=== PATIENT | female | born 1990 | race African-American/Black ===

== ENCOUNTER 2016-10-10 11:16 | Emergency (ER) | payer OTHER ==
[~2016-10-10] VITALS: Ht 154.9 cm; Wt 78.0 kg
[2016-10-10 11:17] VITALS: BP 118/75; PULSE 97; RESP 16; TEMP 98.1; O2SAT 99
[2016-10-10] MEDS ORDERED: ACETAMINOPHEN 325 MG TAB PO ONE (11:30)
[2016-10-10] MEDS ORDERED: ONDANSETRON ODT 4 MG TAB PO ONE (11:30)
--- NOTE | 2016-10-10 11:31 | PD ---
HPI Chief Complaint: Related Problem Time Seen by Provider: 11:25 Travel History International Travel<30 days: No Contact w/Intl Traveler<30days: No Traveled to known affect area: No History of Present Illness HPI This patient was examined in the presence of a female nurse. 26-year-old female presents for evaluation of abdominal pain. Symptoms started 3 days ago. She describes it as an aching sensation in the left lower portion of her abdomen which is constant. She does endorse being , last menstrual period was August 30. She went to the health department and had a positive test. She does endorse a slight headache as well as nausea, one episode of vomiting yesterday. She denies any vaginal bleeding or discharge , dysuria, flank pain, fevers or chills. She has not yet seen an DROP COUNT ASSOCIATE. No other complaints. PFSH Past Medical History ?: LMP: 08/30/16 Social History Alcohol Use: No Tobacco Use: No Allergies-Medications (Allergen,Severity, Reaction): Coded Allergies: No Known Allergies (Unverified , 10/10/16) Reported Meds & Prescriptions Reported Meds & Active Scripts Active Plus Iron 29-1 mg ( Vit-Iron Carbonyl) 1 Tab Tab 1 Tab PO DAILY Macrobid (Nitrofurantoin Monoh/Nitrofur Macro) 100 Mg Cap 100 Mg PO BID 7 Days Review of Systems Except as stated in HPI: all other systems reviewed are Neg Physical Exam Narrative GENERAL: Well-developed well-nourished female in no acute distress SKIN: Warm and dry. HEAD: Atraumatic. Normocephalic. EYES: Pupils equal and round. No scleral icterus. No injection or drainage. ENT: No nasal bleeding or discharge. Mucous membranes pink and moist. NECK: Trachea midline. No JVD. CARDIOVASCULAR: Regular rate and rhythm. No murmur appreciated. RESPIRATORY: No accessory muscle use. Clear to auscultation. Breath sounds equal bilaterally. GASTROINTESTINAL: Abdomen soft, mild suprapubic/left lower quadrant tenderness without guarding. Pelvic examination performed in the presence of a female nurse: There is some yellow discharge noted in the vaginal canal. There is no cervical motion tenderness, no adnexal tenderness. MUSCULOSKELETAL: No obvious deformities. NEUROLOGICAL: Awake and alert. No obvious cranial nerve deficits. Motor grossly within normal limits. Normal speech. Data Data Last Documented VS Vital Signs Date Time Temp Pulse Resp B/P Pulse Ox O2 Delivery O2 Flow Rate FiO2 10/10/16 11:25 14 10/10/16 11:17 98.1 97 118/75 99 Orders Beta Hcg (Quant/Titer) (10/10/16 11:27) Gc And Chlamydia Pcr (10/10/16 11:27) Us Pelvis (Ques Pr/Ect)W Trans (10/10/16 ) Wet Prep Profile (10/10/16 11:27) Urinalysis - C+S If Indicated (10/10/16 11:27) Ed Urine Pregnancytest Poc (10/10/16 11:27) Ondansetron Odt (Zofran Odt) (10/10/16 11:30) Acetaminophen (Tylenol) (10/10/16 11:30) Urine Culture (10/10/16 11:40) Azithromycin Powd Pack (Zithromax Powd P (10/10/16 12:45) Ceftriaxone Inj (Rocephin Inj) (10/10/16 12:45) Lidocaine 1% Inj (50 Ml) (Xylocaine 1% I (10/10/16 12:45) Metronidazole (Flagyl) (10/10/16 12:45) Labs Laboratory Tests Test 10/10/16 10/10/16 11:40 12:20 Urine Color YELLOW Urine Turbidity CLOUDY Urine pH 5.5 Urine Specific [place] 1.025 Urine Protein 30 mg/dL Urine Glucose (UA) NEG mg/dL Urine Ketones 40 mg/dL Urine Occult Blood NEG Urine Nitrite NEG Urine Bilirubin NEG Urine Urobilinogen LESS THAN 2.0 MG/DL Urine Leukocyte Esterase LARGE Urine RBC 16 /hpf Urine WBC 111 /hpf Urine Squamous Epithelial 43 /hpf Cells Urine Renal Epithelial Cells 1 /hpf Urine Bacteria MANY /hpf Urine Mucus FEW /lpf Microscopic Urinalysis Comment CULTURE INDICATED Human Chorionic Gonadotropin, 22036 MIU/ML Quant Clue Cells (Wet Prep) NONE SEEN Vaginal Trichomonas (Wet Prep) PRESENT Vaginal Yeast (Wet Prep) NONE SEEN Chlamydia trachomatis DNA NOT DETECTED (PCR) Neisseria gonorrhoeae DNA NOT DETECTED (PCR) MDM Medical Decision Making Medical Screen Exam Complete: Yes Emergency Medical Condition: Yes Medical Record Reviewed: Yes Interpretation(s) Quantitative beta hCG 99762 Differential Diagnosis Intrauterine , ectopic , PID, tubal ovarian abscess, cystitis Narrative Course 26-year-old female who was recently with at the health Department presents with 3 days of pelvic/left lower quadrant abdominal pain, some nausea, one episode of emesis yesterday, mild headache. Physical examination is reassuring. We will check urinalysis, pelvic ultrasound rule out ectopic, pelvic examination, she'll be provided Tylenol and Zofran for symptom relief. Urinalysis is consistent with UTI and she'll be treated with Macrobid. Her wet prep is positive for trichomoniasis and so the patient is being given 2 g of Flagyl and also being treated empirically with Rocephin and azithromycin pending chlamydia and gonorrhea results. Option reveals an angiogram 6 weeks gestational age. The patient was notified of all results. She is stable for discharge, she plans on establishing care with an DROP COUNT ASSOCIATE. Diagnosis Primary Impression: Urinary tract infection Qualified Code: N30.01 - Acute cystitis with hematuria Additional Impressions: Trichomoniasis Intrauterine Additional Instructions: Establish care with an DROP COUNT ASSOCIATE. Medication as prescribed. As discussed, have all sexual partners be tested and treated at primary care physician's office or the health department for trichomoniasis. Return for any emergent medical conditions. Med/Other Pt SpecificInfo: Prescription(s) given Scripts Vit-Iron Carbonyl ( Plus Iron 29-1 mg)1 Tab Tab1 Tab PO DAILY #90 TAB Ref 2 Prov:Juan R Egan MD 10/10/16 Nitrofurantoin Monohydrate Macrocrystals (Macrobid)100 Mg Tyn585 Mg PO BID 7 Days Ref 0 Prov:Juan R Egan MD 10/10/16 Disposition: DISCHARGE HOME Condition: Stable William Wade October 10, 2016 11:31
[2016-10-10 12:05] LABS: BACTERIA, URINE MANY /hpf; BLOOD, URINE NEG (NEG); COMMENT (UR) CULTURE INDICATED; CULTURE IF INDICATED CULTURE INDICATED; GLUCOSE,URINE NEG (NEG); KETONE, URINE 40 mg/dL (NEG); MUCUS URINE FEW /lpf (OCC); NITRITE,URINE NEG (NEG); PH, URINE 5.5 (5.0-8.5); RENAL EPITHELIAL CELLS 1 /hpf; SQUAMOUS EPITHELIAL CELL URINE 43 /hpf (0-5); URINE COLOR YELLOW (YELLW/STRAW)
[2016-10-10] MEDS ORDERED: PREN29TA PO (12:28)
[2016-10-10] MEDS ORDERED: MACR100C2 PO (12:28)
[2016-10-10 12:35] LABS: BETA HCG QUANT 41644 MIU/ML (0-5)
[2016-10-10] MEDS ORDERED: cefTRIAXone 250 MG VIAL IM ONE (12:45)
[2016-10-10] MEDS ORDERED: LIDOCAINE HCL 1% 50 ML VIAL IM ONE (12:45)
[2016-10-10] MEDS ORDERED: metroNIDAZOLE 500 MG TAB PO ONE (12:45)
[2016-10-10] MEDS ORDERED: AZITHROMYCIN PWD FOR SUSP 1 GM PACKET PO ONE (12:45)
[2016-10-10 15:12] LABS: CHLAMYDIA PCR NOT DETECTED (NOT DETECT); NEISSERIA PCR NOT DETECTED (NOT DETECT)
--- NOTE | 2016-10-10 15:53 | RADRPT ---
EXAM DATE/TIME: 10/10/2016 14:10 [facility] COMPARISON: No previous studies available for comparison. INDICATIONS : Abdominal pain. LAB(S): [facility] MEDICAL HISTORY : . SURGICAL HISTORY : None. ENCOUNTER: Initial ACUITY: 3 days PAIN SCORE: 3/10 LOCATION: Bilateral pelvis MEASUREMENTS: UTERUS: 7.1 x 5.6 x 4.8 cm ENDOMETRIAL STRIPE: 8 mm RIGHT OVARY: 3.1 x 1.9 x 1.7 cm LEFT OVARY: 3.2 x 2.0 x 1.5 cm FREE FLUID: Yes CROWN RUMP LENGTH: 0.33 cm = 6 WKS 0 DAYS FHR: 105 BPM FINDINGS: UTERUS: The examination demonstrates an intrauterine gestation. The gestational sac measures 2.4 x 1.1 x 2.6 cm. There is a pole identified. The crown rump length measures 3.3 mm. This corresponds to a ge stational age of 6 weeks zero days. RIGHT OVARY: Ovary contains no mass or significant cystic lesion. LEFT OVARY: The exam demonstrates a 1.7 x 1.5 cm anechoic cyst arising from the left ovary. MISCELLANEOUS: There is a trace amount of free fluid seen within the pelvis. CONCLUSION: 1. Viable intrauterine gestation estimated age 6 weeks zero days. 2. Minimal free fluid within the low pelvis which is likely physiologic. Anand Peraza MD on October 10, 2016 at 15:47 Board Certified Radiologist. This report was verified electronically.
== END 2016-10-10 16:15 | disposition home or self-care (01) ==
LOC: NEPD 11:16
DX: O23.11 Infections of bladder in pregnancy, first trimester (principal); B96.89 Other specified bacterial agents as the cause of diseases classified elsewhere; A59.9 Trichomoniasis, unspecified; Z3A.01 Less than 8 weeks gestation of pregnancy
CPT/HCPCS: 76700; 76817; 81001; 84702; 84703; 87086; 87210; 87491; 87591; 96372; 99284; J0696

== ENCOUNTER 2016-10-18 16:39 | Emergency (ER) | payer OTHER ==
[~2016-10-18] VITALS: Ht 157.5 cm; Wt 78.0 kg
[~2016-10-18 16:39] MED LIST: MACR100C2 PO; PREN29TA PO
[2016-10-18 16:41] VITALS: BP 134/77; PULSE 88; RESP 15; TEMP 98.2; O2SAT 97
[2016-10-18] MEDS ORDERED: DOXY10TA PO (17:56)
--- NOTE | 2016-10-18 17:56 | PD ---
HPI Chief Complaint: Related Problem Time Seen by Provider: 17:25 Travel History International Travel<30 days: No Contact w/Intl Traveler<30days: No Traveled to known affect area: No History of Present Illness HPI This is a 26 year old female 7 weeks who presents to the emergency department who presents to the emergency department concerned because she vomited a thick white mucous substance. Pt. reports that she has had nausea and vomiting throughout her , and she has never vomited anything like this before. The episode occurred immediately after eating dinner. The symptoms have resolved. She denies any abdominal pain, cramping, vaginal bleeding, fevers or chills. PFSH Past Medical History ?: LMP: 08/30/16 Social History Alcohol Use: No Tobacco Use: No Allergies-Medications (Allergen,Severity, Reaction): Coded Allergies: No Known Allergies (Unverified , 10/10/16) Reported Meds & Prescriptions Reported Meds & Active Scripts Active Plus Iron 29-1 mg ( Vit-Iron Carbonyl) 1 Tab Tab 1 Tab PO DAILY Macrobid (Nitrofurantoin Monoh/Nitrofur Macro) 100 Mg Cap 100 Mg PO BID 7 Days Review of Systems Except as stated in HPI: all other systems reviewed are Neg Physical Exam Narrative GENERAL:Well appearing, no acute distress SKIN: Focused skin assessment warm and dry. HEAD: Atraumatic. Normocephalic. EYES: Pupils equal and round. No injection or drainage. ENT: Moist mucous membranes NECK: Trachea midline. CARDIOVASCULAR: Regular rate and rhythm. No murmur appreciated. RESPIRATORY: Clear to auscultation. Breath sounds equal bilaterally. GASTROINTESTINAL: Abdomen soft, non-tender, nondistended. MUSCULOSKELETAL: No obvious deformities. NEUROLOGICAL: Awake and alert. No obvious cranial nerve deficits. PSYCHIATRIC: Appropriate mood and affect; insight and judgment normal. Data Data Last Documented VS Vital Signs Date Time Temp Pulse Resp B/P Pulse Ox O2 Delivery O2 Flow Rate FiO2 10/18/16 16:41 98.2 88 15 134/77 97 MDM Medical Decision Making Medical Screen Exam Complete: Yes Emergency Medical Condition: Yes Interpretation(s) afebrile, no tachycardia, normotensive Differential Diagnosis first trimester vomiting, hyperemesis gravidarum, dehydration Narrative Course This is a 26 year old female who presents to the emergency department concerned because she vomited a thick white substance. Her symptoms have completely resolved. She feels back to normal. This likely reflects normal first trimester nausea and vomiting. I don't think any additional testing is warranted. Pt. will be discharged home. Diagnosis Primary Impression: Vomiting during Patient Instructions: General Instructions Additional Instructions: Follow up with [facility] at: Follow up with: [facility] [address] [facility]. [address] [place] [address] Office Hours Thursday - 9:00 am - 5:30 pm Thursday 8:00 am - 12:00 pm Teen Tuesdays 4:00 - 6:30 pm Med/Other Pt SpecificInfo: Prescription(s) given Scripts Doxylamine-Pyridoxine (Diclegis)10-10 Mg Tab1 Tab PO HS PRN (NAUSEA) #20 Prov:Daksha Mix MD 10/18/16 Disposition: 01 DISCHARGE HOME Condition: Stable Daksha Mix MD October 18, 2016 17:56
== END 2016-10-18 18:00 | disposition home or self-care (01) ==
LOC: NEPD 16:39
DX: O21.0 Mild hyperemesis gravidarum (principal); Z3A.01 Less than 8 weeks gestation of pregnancy
CPT/HCPCS: 99283